=== PATIENT | male | born 1940 | race Caucasian/White ===

== ENCOUNTER 2016-03-24 08:58 | Day surgery (SDC) | payer MEDICARE, OTHER ==
[~2016-03-24] VITALS: Ht 195.6 cm; Wt 107.1 kg
[2016-03-24] VITALS (8 sets, daily range): BP systolic 111–151; BP diastolic 55–82; PULSE 61–88; RESP 14–44; O2SAT 94–98
--- NOTE | 2016-03-24 06:54 | PCM.HPANE ---
Patient Data Surgeon Admitting Provider: Attending Provider:Nick Amaya MD Primary Care Physician:Kwame Juarez MD Other Provider:[facility] Anesthesia Reason for Visit Right Inguinal Hernia Ht/WT & BMI Height (Feet): 6 Height (Inches): 5 Weight (Kilograms): 103.41 Body Mass Index 26.00 Allergies Coded Allergies: No Known Allergies (Unverified , 03/23/16) Past Anesthesia History Anesthesia History: Denies:: Abnormal Airway, Anesthesia Reactions, Fam Anesthesia Reaction Diabetes History Hx Diabetes?: No MRSA MRSA: No Medications Hypertension Medication: No Home Meds Incl Beta Crystal: No Reported Medications Ibuprofen 200 Mg [id number] Mg PO QID PRN For Pain Ref 0 03/23/16 History History of ENT Problems?: No HEENT History: Denies:: Abnormal Airway Cataracts Dysphagia Glaucoma Hearing Problem Sinus Problem TMJ Hx of Heart Problems?: No Cardiovascular History: Denies:: AICD Abdominal Aortic Aneurism Atrial Fibrillation Chest Pain Coronary Artery Disease Edema Heart Murmur Hypertension Irregular Heartbeat Pacemaker Peripheral Vascular Hx of Respiratory Problem?: No Respiratory History: Denies:: Asthma COPD Emphysema Oxygen Administration Pneumonia Tuberculosis Use of C-PAP Machine Hx Neurologic Problems?: No Neurological History: Denies:: CVA Dementia Headaches Multiple Sclerosis Parkinson's Disease Seizures TIA Hx of GI Problems?: Yes Gastrointestinal History: Denies:: Cirrhosis Diverticulitis Gall Bladder Disease Gastroesphageal Reflux Gastrointestinal Bleeding Heartburn Hepatitis Hiatal Hernia Liver Disease Other GI Pertinent History: right inguinal hernia current admission problem Hx of Problems?: No Genitourinary History: Denies:: Kidney Stones Urinary Tract Infection Male Hx: Denies:: Prostate Problems Scrotal Mass Testicular Surgery Skin History: Denies:: History Skin Disorders? Pressure Ulcers Hx Musculoskeletal Problems?: No Musculoskeletal History: Denies:: Back Injury Fibromyalgia Joint Replacement Musculoskeletal Trauma (past hx of knee surgery) Myasthenia Gravis Osteoarthritis Systemic Lupus Hx of Psycho/Social Problems?: No Psycho Social History: Denies:: Anxiety Hx Depression Hx Surgeries?: Yes (knee surgery) Hx Any Other Health Problems?: Yes Other History: Denies:: Cancer Thyroid Disease History Blood Transfusions: Positive for:: Accept Blood Products? Denies:: Blood Transfusions Hx Diabetes: No Hx Alcohol Use: NoHx Substance Use: NoHave You Smoked inLast 12 mo: No Stop/Bang S-Snoring: Do You Snore Loudly: No T-Tired: feel tired, fatigued: No O-Obsered: Observed not breath: No P-Blood Pressure: treated: No B- Body Mass Index > 35 kg/m2: No A- Age over 50: Yes N- Neck Large Circumference: No G- Gender Male: Yes LARRY Total Score: 2 Risk Assessment Category Category 1A: Patient has history of documented sleep apnea, and HAS NOT received any narcotic, sedative or anesthesia administration during this stay. Category 1B: Patient has history of documented sleep apnea, and HAS received any narcotic , sedative or anesthesia administration during this stay Category 2: Patient has SUSPECTED Obstructive Sleep Apnea, and HAS received any narcotic , sedative or anesthesia administration during this stay. Category 3: Patient has SUSPECTED Obstructive Sleep Apnea and HAS NOT received narcotic, sedative or anesthesia administration during this stay. Category 4: Outpatient in Procedural Areas with known sleep apnea or who screen positive for High Risk via the STOP/BANG questionnaire. Exam Exam General Appearance: Alert, Oriented X3, Cooperative HEENT/AIRWAY: MP 2, Neck Movement (from), Mouth Opening (wnl) Lungs: Clear to Auscultation Heart: Exam Unremarkable Plan Impression Patient chart reviewed, patient interviewed and anesthestic plan with risks, benefits, and alternatives discussed, and informed consent obtained. ASA Physical Status: ASA2 Mod Systemic Disease Anesthetic Plan: GA Bene/Risks/Altern/Consents: Yes HP Complete Prior to Induction: Yes Thomas Estes MD Mar 24, 2016 06:54
[~2016-03-24 08:58] MED LIST: CeFAZolin Inj 2 GM in IV Premix 1 EACH IV ONE; IBUP200C PO
[2016-03-24] MEDS ORDERED: Ondansetron 2 mg/mL 2 mL Inj ONE (08:59)
[2016-03-24] MEDS ORDERED: Propofol 10,000 mCg/mL 20 mL Inj ONE (08:59)
[2016-03-24] MEDS ORDERED: fentaNYL-PF 50 mCg/mL 2 mL Inj ONE (08:59)
[2016-03-24] MEDS: Lactated Ringer's 1,000 ML IV SCH ×2 (09:24→12:37)
[2016-03-24] MEDS ORDERED: Lactated Ringer's 500 ML IV PRN (12:24)
[2016-03-24] MEDS ORDERED: Lactated Ringer's 1,000 ML IV SCH (12:24)
[2016-03-24] MEDS ORDERED: Dexamethasone 4 mg/mL Inj IVPUSH PRN (12:25)
[2016-03-24] MEDS ORDERED: Ondansetron 2 mg/mL 2 mL Inj IVPUSH PRN (12:25)
[2016-03-24] MEDS ORDERED: HYDROmorphone 1 mg/mL Inj IVPUSH PRN (12:25)
[2016-03-24] MEDS ORDERED: fentaNYL-PF 50 mCg/mL 2 mL Inj IVPUSH PRN (12:25)
[2016-03-24] MEDS ORDERED: Phenylephrine 10,000 mCg/mL Inj IVPUSH PRN (12:25)
[2016-03-24] MEDS ORDERED: Atropine 0.4 mg/mL Inj IVPUSH PRN (12:25)
[2016-03-24] MEDS ORDERED: EPHEDrine Sulfate 50 mg/mL Inj IVPUSH PRN (12:25)
[2016-03-24] MEDS ORDERED: Labetalol 5 mg/mL 4 mL Inj IV PRN (12:25)
[2016-03-24] MEDS ORDERED: hydrALAZINE 20 mg/mL Inj IVPUSH PRN (12:25)
[2016-03-24] MEDS ORDERED: Bupivacaine-MPF 0.5% 30 mL Inj INFILTRATE ONE (12:34)
[2016-03-24] MEDS ORDERED: oxyCODONE-Acetamin 5-325 mg Tablet PO PRN (13:30)
--- NOTE | 2016-03-24 13:40 | PCM.ANEP1 ---
Post Anesthesia Phase 1 PACU Phase 1 Assessment Vital Signs Vital Signs Date Time Temp Pulse Resp B/P Pulse Ox O2 Delivery O2 Flow Rate FiO2 03/24/16 13:35 61 15 111/65 94 Room Air 03/24/16 13:30 61 14 119/70 94 Room Air 03/24/16 13:25 36.6 61 16 129/69 96 Room Air 03/24/16 09:35 37.1 88 16 151/82 96 Room Air Anesthetic Administered: GA Level of Alertness: Awake, talking MARTÍNEZ's with Equal Strength: No Pain: No Airway Device: Endotrachial Tube Lungs: Normal Air Movement Thomas Estes MD Mar 24, 2016 13:40
--- NOTE | 2016-03-24 14:12 | PCM.ANEP2 ---
Post Anesthesia Evaluation ASA/CMS Post Anesthesia VS in Patient's Normal Range?: Yes Resp Stable; Airway Patent?: Yes CV Function & Hydration Stable: Yes Mental Status Recovered?: Yes Pain control Satisfactory?: Yes N/V Control Satisfactory?: Yes Thomas Estes MD Mar 24, 2016 14:12
--- NOTE | 2016-03-24 23:45 | OP ---
[address] [address] OPERATIVE REPORT PATIENT: DAYTON RICHARDSON : 1940 MR#: [id number] ADMIT: 03/24/2016 JOB ID: [id number] DATE OF SURGERY: 03/24/2016 PREOPERATIVE DIAGNOSIS(ES): Symptomatic right inguinal hernia. POSTOPERATIVE DIAGNOSIS(ES): Symptomatic indirect right inguinal hernia. OPERATION: Preperitoneal right inguinal hernia repair with mesh. SURGEON: Nick Amaya MD RADIOLOGY TRANSCRIPTIONIST: Isai Cohen PA-C INDICATIONS: The patient is a 76-year-old man who has a symptomatic right inguinal hernia. After discussing options, which did include observation because of his ongoing symptoms, he elected to proceed with repair. FINDINGS: He had an indirect right inguinal hernia. There was no palpable direct hernia. There was no appreciable femoral hernia. DESCRIPTION OF PROCEDURE: At the beginning and end of the operation, SCOAP checklist was completed. An LMA anesthetic was induced. Using ChloraPrep, he was prepped and draped in the usual fashion. I also injected a total of 20 cc of 0.5% plain bupivacaine during the operation. His right inguinal incision was designed and made, and then dissection was carried down to the external oblique. A large superficial epigastric vein was ligated with 3-0 chromic and divided. The external oblique was opened in the direction of its fibers, as was the internal oblique and the transversus abdominis. The transversalis fascia was opened vertically. The peritoneum was identified. The hernia sac was readily identified and mobilized off of the cord using cautery, sharp and blunt dissection. I entered the sac a couple of times and repaired the peritoneal defect with 3-0 chromic. The sac was mobilized well off the cord well beyond the separation of the vas deferens and the gonadal vessels. The deep epigastric artery and vein were identified and elevated anteriorly. The preperitoneal space was developed and then a 3.4 x 5.6 inch OnFlex mesh was positioned into the preperitoneal space. It was secured to the transversus abdominis with interrupted 2-0 PDS. The internal oblique was closed with 2-0 PDS. The external oblique and Liyah's with 3-0 Vicryl and the skin with subcuticular 4-0 Vicryl. Steri-Strips and sterile dressing were applied. The final sponge, needle, and instrument counts were announced as correct and he was returned to recovery in stable condition. The estimated blood loss was less than 10 cc. No apparent complications. Critical assistance was provided by Isai Cohne PA-C.
== END 2016-03-24 23:59 | disposition home or self-care (01) ==
LOC: SAS 08:58
PROVIDERS: ATTEND Surgery
DX: K40.90 Unilateral inguinal hernia, without obstruction or gangrene, not specified as recurrent (principal)
CPT/HCPCS: 49505; J0690; J2250; J2405; J3010; J7120